=== PATIENT | female | born 1995 | race African-American/Black ===

== ENCOUNTER 2022-03-30 10:49 | Emergency (ER) | payer OTHER ==
[~2022-03-30] VITALS: Ht 157.5 cm; Wt 79.5 kg
[2022-03-30] MEDS ORDERED: KETOROLAC 60MG 2ML VIAL IM ONE (14:05)
[2022-03-30] MEDS ORDERED: NAPR-837 PO (14:08)
[2022-03-30] MEDS ORDERED: HYDR-3713 PO (14:08)
[2022-03-30 14:17] VITALS: BP 132/92
== END 2022-03-30 14:21 | disposition home or self-care (01) ==
LOC: EDBD 10:49 → M ED 10:49
DX: K08.89 Other specified disorders of teeth and supporting structures (principal); F17.200 Nicotine dependence, unspecified, uncomplicated
CPT/HCPCS: 96372; 99283; J1885